=== PATIENT | male | born 1990 | race Two or more races ===

== ENCOUNTER 2016-08-30 10:12 | Emergency (ER) | payer MEDICAID, OTHER ==
[~2016-08-30] VITALS: Ht 170.2 cm; Wt 52.2 kg
[2016-08-30] MEDS ORDERED: SODIUM CHLORIDE 0.9% 1,000 ML IVB ONE (10:38)
[2016-08-30] MEDS ORDERED: PANTOPRAZOLE SODIUM 40 MG/10 ML VIAL IV ONE (10:45)
[2016-08-30] MEDS ORDERED: PROCHLORPERAZINE EDISYLATE 5 MG/ML 2ML VIAL IV ONE (10:45)
[2016-08-30 11:09] LABS: Hematocrit 48.6 % (41.0-53.0); Hemoglobin 16.3 g/dL (13.5-17.5); Mean Corpuscular Hemoglobin 31.6 pg (28.0-32.0); Mean Corpuscular Hgb Conc. 33.5 g/dL (32.0-36.0); Mean Corpuscular Volume 94.3 fL (80.0-100.0); Mean Platelet Volume 11.5 fL (7.4-10.4); Platelet Count (auto) 143 10^3/uL (140-450); Red Cell Distribution Width 12.9 % (11.6-16.0); SUSPECT VIEW TRANSMISSION; White Blood Cell 17.7 10^3/uL (4.4-10.8)
[2016-08-30 11:22] LABS: Metamyelocytes % 0; Myelocytes % 0; Promyelocytes % 0; Reactive Lymphocytes 0
[2016-08-30 11:36] LABS: BUN/Creatinine Ratio 16.2; Bilirubin, Total 1.1 mg/dL (0.2-1.0); Calcium 8.8 mg/dL (8.5-10.1); Potassium 3.7 mmol/L (3.5-5.1); Total Protein 7.7 g/dL (6.4-8.2)
[2016-08-30 11:59] LABS: Urine Bilirubin Negative (Negative); Urine Blood Negative /uL (Negative); Urine Color Yellow (Yellow); Urine Glucose Normal (Normal); Urine Nitrite Negative (Negative); Urine RBC 1 /hpf (0 - 3); Urine Squamous Epithelial Cell FEW /hpf (<5)
[2016-08-30 12:07] LABS: Urine Ketone 1+ (Negative)
[2016-08-30 12:29] LABS: Platelet Estimate Adequate
[2016-08-30 12:30] LABS: Giant Platelets Few
[2016-08-30 12:31] LABS: Stomatocytes Few
[2016-08-30] MEDS ORDERED: IOHEXOL 300 MG/ML 100ML BOTTLE IJ ONE (12:37)
[2016-08-30 13:40] VITALS: BP 120/72
== END 2016-08-30 14:31 | disposition home or self-care (01) ==
LOC: EDSEX 10:12 → ER 10:12
DX: K29.70 Gastritis, unspecified, without bleeding (principal); G89.29 Other chronic pain; M54.9 Dorsalgia, unspecified; F12.10 Cannabis abuse, uncomplicated
CPT/HCPCS: 36415; 74177; 80053; 81001; 82150; 83690; 85007; 85027; 94761; 96361; 96374; 96375; 99285; C9113; J0780; J7030; Q9967